=== PATIENT | female | born 1940 | race Caucasian/White ===

== ENCOUNTER → 2019-09-03 | Outpatient (CLI) | payer OTHER ==
[~2019-09-03] MED LIST: ALLEGRA180 MG PO; BARIATRIC ADVANTAGE PO; CALTRATE-600 W1 EACH PO; CELEBREX 200 M200 MG PO; DEXALENT PO; HM FISH OIL 1,1 EACH PO; MELATONIN3 MG PO; MULTIVITAMINS1 EAC7 PO; NASONEX17 GM INH; NORVASC10 MG PO; SUPER B COMPLE1 EAC2 PO; VITAMIN D-32000 UNIT PO; [UNRECOGNIZED DRUG - OTHER] PO
== END ==
LOC: M.ULTRA 08-26 16:57
DX: M85.89 Other specified disorders of bone density and structure, multiple sites (principal); R10.11 Right upper quadrant pain; Z78.0 Asymptomatic menopausal state; Z90.49 Acquired absence of other specified parts of digestive tract

== ENCOUNTER → 2019-11-29 | Outpatient (CLI) | payer OTHER | LOC: M.MRI 11-22 11:30 | DX: S46.911A Strain of unspecified muscle, fascia and tendon at shoulder and upper arm level, right arm, initial encounter (principal); M19.011 Primary osteoarthritis, right shoulder; M62.511 Muscle wasting and atrophy, not elsewhere classified, right shoulder; M25.411 Effusion, right shoulder; X58.XXXA Exposure to other specified factors, initial encounter; Y93.89 Activity, other specified; Y92.89 Other specified places as the place of occurrence of the external cause; Y99.8 Other external cause status ==

== ENCOUNTER → 2019-12-19 | Outpatient (CLI) | payer OTHER | LOC: M.CT 10:35 | DX: M19.011 Primary osteoarthritis, right shoulder (principal) ==

== ENCOUNTER 2020-04-10 06:06 | Inpatient (IN) | payer OTHER ==
[2020-04-07 15:04] LABS: ABSOLUTE BASOPHILS 0.1 thou/uL (0.0-0.2); ABSOLUTE EOSINOPHILS 0.1 thou/uL (0.0-0.7); ABSOLUTE LYMPHOCYTES 1.6 thou/uL (0.8-5.3); ABSOLUTE MONOCYTES 0.4 thou/uL (0.0-1.2); ABSOLUTE NEUTROPHILS 5.2 thou/uL (1.6-8.1); BASOPHILS 1.3 %; EOSINOPHILS 1.1 %; HEMATOCRIT 44.4 % (37.0-47.0); HEMOGLOBIN 15.4 gm/dL (12.0-15.0); LYMPHOCYTES 21.2 %; MCH 34.9 pg (26.0-34.0); MCHC 34.6 g/dL (28.0-37.0); MCV 100.9 fL (80.0-100.0); MONOCYTES 5.1 %; MPV 7.1 fl. (7.2-11.1); NUCLEATED RBCS 0 /100WBC; PLATELET COUNT* 246 thou/uL (150-400); POLYS 71.3 %; RDW-CV 13.8 % (10.5-14.5); WBC 7.3 thou/uL (4.0-11.0)
[2020-04-07 15:17] LABS: APTT 25.4 Seconds (25.0-31.3); PROTIME 9.8 Seconds (9.20-11.50)
[2020-04-07 15:20] LABS: CALCIUM 8.8 mg/dL (8.5-10.1); CREATININE 1.1 mg/dL (0.6-1.3); POTASSIUM 4.2 mmol/L (3.5-5.1); TOTAL BILIRUBIN 0.4 mg/dL (<0.1-1.0); TOTAL PROTEIN 7.5 g/dL (6.4-8.2)
--- NOTE | 2020-04-07 15:32 | EKG ---
[place] [address] ELECTROCARDIOGRAM REPORT Name: KIRAN ERNST Room: [facility]#: [id number] Admission: Attend Phys: Galo Cope Discharge: Date of : 44 Date of Service: 04/07/20 1509 Report #: [id number] THIS REPORT FOR: //name// [facility] Test Date: 2020-04-07 Test Time: 15:09:18 Pat Name: KIRAN ERNST Department: Room: Gender: F Order Entry Clerk: : 1940 Requested By: Fremin Hoyt Order Number: [id number] Reading MD: Panfilo Wright Measurements Intervals [place] Rate: 86 P: 45 CT: 159 QRS: -17 QRSD: 100 T: 229 QT: 357 QTc: 427 Interpretive Statements Sinus rhythm Borderline left axis deviation Abnormal R-wave progression, late transition Borderline repolarization abnormality Compared to ECG 05/18/2007 13:48:09 T-wave abnormality no longer present Electronically Signed On 04-07-2020 15:30:51 CDT by Panfilo Wright [email or web address] <ELECTRONICALLY SIGNED> By: Panfilo Wright MD, FAC 04/07/20 1530 1509 1509 Panfilo Wright MD, [facility] /EPI
[2020-04-07 16:13] LABS: ESR (SEDRATE) 1 mm/hr (0-30)
[~2020-04-10] VITALS: Ht 160 cm; Wt 77.6 kg
--- NOTE | ~2020-04-10 | OP ---
[facility] [place] [address] [place] [address] OPERATIVE REPORT Name: KLEVERKIRAN George Room: [address] IN ..#: [id number] Admission: 04/10/20 Attend Phys: Juice Shaikh Discharge: Date of : 44 Report #: [id number] THIS REPORT FOR: //name// cc: Aleisha Yip MD, Katrina MD ~ THIS REPORT FOR: //name// CC: Fermin Cope DICTATED BY: Vasquez Philip DO DATE OF SERVICE: 04/10/2020 PREOPERATIVE DIAGNOSIS: Right shoulder end-stage rotator cuff arthropathy with advanced degenerative joint disease. POSTOPERATIVE DIAGNOSIS: Right shoulder end-stage rotator cuff arthropathy with advanced degenerative joint disease. PROCEDURE PERFORMED: Right reverse total shoulder arthroplasty. SURGEON: Fermin Hoyt DO FLOORING PROFESSIONAL: Vasquez Philip DO SECOND LABORER GOLF COURSE: ____. ANESTHESIA: General. ESTIMATED BLOOD LOSS: 200 mL. COMPLICATIONS: None. DISPOSITION: Stable to PACU. ORTHOPEDIC IMPLANTS: 28 reverse total shoulder system was utilized with the following components: 1. Size 4 standard humeral stem. 2. 42 mm eccentric glenosphere with a corresponding centered glenoid baseplate. 3. Centered reverse tray. 4. A +9 mm polyethylene insert. INDICATIONS FOR PROCEDURE: The patient is a pleasant 79-year-old female who has been followed in the [facility] regarding longstanding right shoulder [facility] [place] [address] OPERATIVE REPORT Name: KIRAN ERNST Room: [address] IN M.R.#: [id number] Admission: 04/10/20 Attend Phys: Juice Shaikh Discharge: Date of : 44 Report #: [id number] pain. She has failed conservative care including physical therapy, activity modifications, corticosteroid injections, NSAID analgesia. Despite these efforts, she has had continued pain. It is adversely affecting her quality of life. We discussed further treatment options including surgical intervention with reverse total shoulder arthroplasty. Risks, benefits, complications and alternatives were discussed with the patient in detail. Risks discussed include but are not limited to bleeding, DVT/PE infection, shoulder instability, continued shoulder pain, periprosthetic fracture, need for repeat surgery, complication with anesthesia and even . The patient expressed understanding and wished to proceed. DESCRIPTION OF PROCEDURE: The patient was transferred to the operating suite and placed on the operating table. She was given the benefit of general anesthesia. She was then placed into beach chair position. The right shoulder and upper extremity were then prepped and draped in the usual sterile fashion. Timeout was taken to confirm the appropriate patient identification, operative site and procedure to be performed. All in the room were in agreement with the timeout. Procedure began by performing a skin incision with a scalpel overlying the deltopectoral interval. Dissection was then carried down through the subcutaneous tissue using electrocautery for hemostasis. The cephalic vein was then identified and freed to carefully preserve it. It was then mobilized laterally. The shoulder capsule was then exposed. It was noted to be attenuated with a large underlying effusion. Electrocautery was used to incise the capsule. Capsular incision was then carried proximally into the shoulder joint and distally along the humeral shaft to the level of the pectoralis major tendon. The capsule was then subperiosteally elevated off the medial humeral neck and the shoulder was dislocated. The intramedullary guide was then used to develop as a guide for our proximal humeral cut. The guide was then positioned and secured. The humeral cut was then performed using a sagittal saw, utilizing the guide. The humerus was then sequentially broached to a size 4. Attention was then addressed to the glenoid where appropriate retractors were placed, both posteriorly and anteriorly. Further capsular release was made along the glenoid rim and the neck of the scapula. Care was taken to stay subperiosteal, to not place the axillary nerve at risk. Once the glenoid was exposed, the guide was placed and the central pin was drilled. The glenoid was then reamed and drilled utilizing the guide pin. The center peg was measured and the final glenoid baseplate was inserted. We then drilled and measured a superior and inferior screw through the baseplate for augment fixation. The glenosphere was then impacted and screwed into position. Attention was then addressed back to the humerus where the trial baseplate and polyethylene were positioned onto the trial humeral stem. Trial reduction was performed utilizing the standard thickness baseplate, centered. The 9 [place] [address] OPERATIVE REPORT Name: KIRAN ERNST Room: [address] [place] [facility]#: [id number] Admission: 04/10/20 Attend Phys: Juice Shaikh Discharge: Date of : 44 Report #: [id number] polyethylene trial gave appropriate tensioning on our soft tissues including the conjoined tendon. The shoulder was taken through range of motion with trial components in place and was found to be stable in all planes and allowed for appropriate range of motion. Trial components were then dislocated and removed. The final humeral stem with a corresponding baseplate and 9 mm polyethylene were inserted. Final reduction was performed. The shoulder was again taken through range of motion. Soft tissue tensioning was noted to be appropriate including the conjoined tendon. This shoulder was stable in all planes without any evidence of subluxation or dislocation. The shoulder also had good range of motion. The shoulder was again thoroughly irrigated. Deltopectoral fascia was then closed using 2-0 Vicryl in a [id number] fashion. Subcutaneous tissue was then closed using 2-0 Vicryl in inverted fashion. Final skin closure was performed using a running 3-0 Stratafix followed by skin glue. Sterile dressings were applied. The patient was placed into a slingshot shoulder immobilizer. She was transferred to PACU in stable condition. Needle and sponge counts were correct at the end of procedure x 2. ATTESTATION: Dr. Hoyt was present and scrubbed in through the entirety of the procedure. By: [id number] Radha Hoyt DO /nt
[~2020-04-10 06:06] MED LIST changes: +ACIPHEX 20 MG T20 MG PO; +ALLEGRA ALLERG180 MG PO; -ALLEGRA180 MG PO; +APAP650 PO; +BIOTIN5 MG PO; +CO Q-10400 MG PO; +EPIDIOLEX100 MG/1 M PO; +MAG-OXIDE400 MG PO; +MOBIC15 MG PO; +OSTEO BI-FLEX1 EAC1 PO; +TRAZODONE HCL100 MG PO; -VITAMIN D-32000 UNIT PO; +VITAMIN D350 MC4 PO
[2020-04-10 06:47] VITALS: BP 128/74
[2020-04-10 15:47] VITALS: BP 119/80
--- NOTE | 2020-04-10 15:53 | NUR ---
PT ADMITTED POST OP SHOULDER REPLACEMENT. PT ALERT AND ORIENTED. PT ON O2. PT VOIDED IN PACU. PT ORIENTED TO ROOM. FALL RISK PRECAUTIONS IN PLACE. HOURLY ROUNDING COMPLETED. WILL CONTINUE TO MONITOR.
--- NOTE | 2020-04-10 17:32 | NUR ---
PT REMAINED ALERT AND ORIENTED. PT RESTING IN BED. PT DENIES AHY PAIN AT THIS TIME. FALL RISK PRECAUTIONS IN PLACE. HOURLY ROUNDING COMPLETED. WILL CONTINUE TO MONITOR.
[2020-04-10 20:00] VITALS: BP 130/85
[2020-04-11] VITALS (7 sets, daily range): BP systolic 116–121; BP diastolic 63–79
--- NOTE | 2020-04-11 04:43 | NUR ---
PATIENT HAS REMAINED ALERT AND ORIENTED X 4 THROUGHOUT THE SHIFT AND RESTING QUIETLY ON HOURLY ROUNDS. RIGHT SHOULDER/ARM IMMOBILIZER PRESENT. RIGHT SHOULDER DRESSING CLEAN AND DRY. RUE NEUROVASCULARLY INTACT. UP TO BR FOR ADEQUATE VOIDS WITH CGA. MEDICATED FOR PAIN X 1 OF THIS WRITING TO GOOD EFFECT. PATIENT HAS HAD GASTRIC SURGERY IN HER PAST. WHEN SHE ATE MORE THAN USUAL FOR SUPPER POST-OP IT TRIGGERED (PER PATIENT EXPLANATION) FROTHING. SHE WAS NOT NAUSEATED BUT WAS SPITTING UP LARGE AMOUNTS FROTHY CLEAR SPUTUM. WHEN THIS DID NOT SUBSIDE USUAL, ZOFRAN WAS PROVIDED. ZOFRAN WAS, IT SEEMS, EFFECTIVE AND PATIENT HAS HAD NO FURTHER EPISODES. VITAL SIGNS STABLE. PROGRESSING TOWARD DISCHARGE GOALS. CONTINUE TO MONITOR.
[2020-04-11] MEDS ORDERED: ELIQUIS5 MG PO (08:16)
[2020-04-11] MEDS ORDERED: OXYCODONE HCL 55 MG PO (08:16)
--- NOTE | 2020-04-11 10:22 | NUR ---
PT REMAINED ALERT AND ORIENTED. PT WORKED WITH PT/OT. PT BELONGINGS GATHERED. FALL RISK PRECAUTIONS IN PLACE. HOURLY ROUNDING COMPLETED. PT GIVEN DISCHARGE INSTRCUTIONS, PRESCRIPTIONS, AND CARE NOTES. PT LEFT VIA WHEELCHAIR WITH NURSING STAFF TO HOME.
== END 2020-04-11 10:23 | disposition home or self-care (01) | DRG 483 ==
LOC: M.TBA 06:06 → M.PRE 07:47 → M.ORTHSURG 11:36 → M.PRE 12:12 → M.ORTHSURG 04-11 10:23
PROVIDERS: Orthopaedic Surgery; ADMIT Internal Medicine; ATTEND Internal Medicine
PROC: 0RRJ00Z Replacement of Right Shoulder Joint with Reverse Ball and Socket Synthetic Substitute, Open Approach (ICD-10-PCS; principal; 2020-04-10)
PROC: 3E0T3BZ Introduction of Anesthetic Agent into Peripheral Nerves and Plexi, Percutaneous Approach (ICD-10-PCS; principal; 2020-04-10)
DX: M19.011 Primary osteoarthritis, right shoulder (principal); E66.9 Obesity, unspecified; I10 Essential (primary) hypertension; G89.29 Other chronic pain; M75.101 Unspecified rotator cuff tear or rupture of right shoulder, not specified as traumatic; Z96.659 Presence of unspecified artificial knee joint; Z03.818 Encounter for observation for suspected exposure to other biological agents ruled out; Z90.710 Acquired absence of both cervix and uterus; Z68.30 Body mass index [BMI] 30.0-30.9, adult; Z90.49 Acquired absence of other specified parts of digestive tract; Z93.2 Ileostomy status; Z98.84 Bariatric surgery status; Z87.891 Personal history of nicotine dependence; Z72.89 Other problems related to lifestyle

== ENCOUNTER → 2020-05-22 | Outpatient (CLI) | payer OTHER ==
[~2020-05-22] MED LIST changes: +ELIQUIS5 MG PO; +OXYCODONE HCL 55 MG PO
[2020-05-22 12:16] LABS: ABSOLUTE BASOPHILS 0.1 thou/uL (0.0-0.2); ABSOLUTE EOSINOPHILS 0.1 thou/uL (0.0-0.7); ABSOLUTE LYMPHOCYTES 0.9 thou/uL (0.8-5.3); ABSOLUTE MONOCYTES 0.4 thou/uL (0.0-1.2); ABSOLUTE NEUTROPHILS 5.5 thou/uL (1.6-8.1); BASOPHILS 1.2 %; EOSINOPHILS 1.4 %; HEMATOCRIT 40.2 % (37.0-47.0); HEMOGLOBIN 13.8 gm/dL (12.0-15.0); LYMPHOCYTES 12.9 %; MCHC 34.3 g/dL (28.0-37.0); MCV 99.1 fL (80.0-100.0); MONOCYTES 5.9 %; MPV 6.8 fl. (7.2-11.1); NUCLEATED RBCS 0 /100WBC; PLATELET COUNT* 218 thou/uL (150-400); POLYS 78.6 %; RBC 4.05 mil/uL (4.20-5.00); RDW-CV 11.7 % (10.5-14.5)
[2020-05-22 15:50] LABS: ESR (SEDRATE) 10 mm/hr (0-30)
== END ==
LOC: M.LAB 11:57
PROVIDERS: ATTEND Orthopaedic Surgery
DX: Z09 Encounter for follow-up examination after completed treatment for conditions other than malignant neoplasm (principal); Z96.611 Presence of right artificial shoulder joint

== ENCOUNTER → 2020-05-26 | Outpatient (CLI) | payer OTHER | LOC: M.NUC 05-22 12:29 | PROVIDERS: ATTEND Orthopaedic Surgery | DX: Z96.651 Presence of right artificial knee joint (principal) ==

== ENCOUNTER → 2021-09-03 | Outpatient (CLI) | payer OTHER | LOC: M.CT 09:34 | PROVIDERS: ATTEND Family Medicine | DX: J34.2 Deviated nasal septum (principal); J32.9 Chronic sinusitis, unspecified ==